=== PATIENT | male | born 1970 | race Caucasian/White ===

== ENCOUNTER 2019-12-01 14:40 | Day surgery (SDC) | payer OTHER, SELFPAY ==
--- NOTE | 2019-12-01 | PATH_ITS ---
[facility] Accession Number: [id number] . 01 Material submitted: . body - POLYP AT 30CM . 02 Diagnosis: Colon at 30 cm, Polyp: Tubular adenoma. MRV 12/05/2019 1035 Local . 02 Electronically signed: . Haroon Long MD, PhD, Pathologist NPI- [id number] . 01 Gross description: . POLYP AT 30CM: Received in formalin is 1 fragment(s) of joseph, soft tissue measuring 0.3 x 0.3 x 0.2 cm submitted entirely in 1 cassette(s) /QBJ 12/02/2019 0722 Local . 02 Pathologist provided ICD-10: D12.6 . 02 CPT . 623223 Performed at: 01 [facility] [address] [place] [address], [place], [place] [id number] MD Ricardo Bal MD Phone: [phone] Performed at: 02 [facility] [address] [place], [place] [id number] MD Lily Hutchison MD Phone: [phone]
[2019-12-01] MEDS: SODIUM CHLORIDE 0.9% 1,000 ML 200 ML IV (15:06)
[2019-12-01 15:07] VITALS: BP 142/84; PULSE 78; RESP 16; TEMP 36.6; O2SAT 98; BMI 31.8
--- NOTE | 2019-12-01 15:13 | PM.HP.1 ---
History of Present Illness History of Present Illness Date Patient Seen: 12/01/19 Time Patient Seen: 15:14 Chief complaint: [id number] Narrative: Patient presents for colorectal screening. They have never had any previous examination for such. No personal or family history of colon cancer. On further history denies any recent gastrointestinal symptoms. No nausea, vomiting, abdominal pain, loss of appetite, unexplained weight loss, change in bowel habits, diarrhea, constipation, melena, hematochezia, or bright red blood per rectum. Patient History Family & Social History Social History: household members family Tobacco & Substance use: Smoking Status Never smoker alcohol intake current alcohol intake frequency 0-2 drinks per day Substance Use Type does not use Meds Home Medications and Allergies Home Medications Medication Instructions Recorded Confirmed Type No Known Home Medications 12/01/19 12/01/19 History Allergies Allergy/AdvReac Type Severity Reaction Status Date / Time No Known Drug Allergies Allergy Verified 12/01/19 14:59 Review of Systems Review of Systems Narrative: A 10 point review of systems is negative except as noted in the HPI Exam Vital Signs (past 8 hours): - 12/01/19 15:07 Temperature 97.8 F Pulse Rate 78 Respiratory Rate 16 Blood Pressure 142/84 H Pulse Oximetry 98 Oxygen Delivery Method Room Air Narrative Exam Narrative: General-no acute distress, well nourished HEENT-moist mucous membranes, no scleral icterus Neck-supple, no lymphadenopathy Chest- non labored respirations, clear to auscultation bilaterally Cardiac-regular rate no peripheral edema Abdomen-soft, nontender, non distended Extremities-warm, well perfused Neurological-alert and oriented, no focal deficits Assessment & Plan Assessment and plan (1) Screening for colon cancer: Problem details: The patient requires colorectal screening and colonoscopy is recommended. Technical details were discussed. Risks, benefits, alternatives explained. Risks including but not limited to myocardial infarction, aspiration, bleeding, pain, missed lesion, incomplete examination, need for further radiographic studies, colonic perforation, and need for major abdominal surgery were discussed. All questions were answered to their satisfaction, and they are in agreement with this plan. Current visit: Yes Status: Acute
[2019-12-01] MEDS: fentaNYL 250 MCG/5 ML INJ IV (15:47)
[2019-12-01] MEDS: MIDAZOLAM 5 MG/ML VIAL 1 MG IV (15:48)
[2019-12-01 16:21] VITALS: BP 146/97; PULSE 79; RESP 23; O2SAT 98
[2019-12-01 16:25] VITALS: TEMP 36.8
[2019-12-01 16:27] VITALS: BP 153/95; PULSE 77; RESP 18; O2SAT 98
--- NOTE | 2019-12-01 16:27 | PM.OP.ENDO ---
Operative Date/Time/Diagnoses Date of procedure: 12/01/19 Time of procedure: 16:27 Pre-op diagnosis: Screening colonoscopy Post-op diagnosis: same Procedure & Clinicians Study performed: Colonoscopy Same procedure as scheduled: Yes Indications: 49-year-old male no prior colonoscopy presents for routine screening Surgeon: Doug Mcgraw Procedure Notes SCOAP/Timeout: Performed Procedure in detail: Patient placed in left lateral decubitus position. Time out was performed. Procedural sedation was administered with Versed and Fentanyl. A rectal exam demonstrated no external hemorrhoids no internal masses. Colonoscopy scope was placed into the rectum and advanced through the colon to the cecum. The ileocecal valve was identified. The scope was then slowly withdrawn examining colon thoroughly in all directions. The colonoscopy was notable for the following 1. Sigmoid polyp 30 cm from the anal verge adenomatous appearing less than 1 cm removed with snare. Hemostasis observed 2. Christine diverticulosis 3. Quality prep excellent Scope withdrawal time: 6 Sedation minutes: 25 Findings: polyp Specimen(s): other (Polyp) Complications: none Impression: Adenomatous polyp Post-procedure Recommendations: Colonscopy in 5 years Disposition: same day surgery
[2019-12-01 16:35] VITALS: BP 136/81; PULSE 73; RESP 15; TEMP 36.7; O2SAT 97
== END 2019-12-01 16:49 | disposition home or self-care (01) ==
PROVIDERS: Referring Provider Surgery; Visit Provider Surgery
PROC: 0DJD8ZZ Inspection of Lower Intestinal Tract, Via Natural or Artificial Opening Endoscopic (ICD-10-PCS; CPT 45378; principal; 2019-12-01 16:00)
DX: Z12.11 Encounter for screening for malignant neoplasm of colon (principal); K57.30 Diverticulosis of large intestine without perforation or abscess without bleeding; D12.6 Benign neoplasm of colon, unspecified
CPT/HCPCS: 45385; 99152; 99153; J2250; J3010